=== PATIENT | female | born 1985 | race Two or more races ===

== ENCOUNTER 2023-12-08 14:55 | Emergency (ER) | payer OTHER, SELFPAY ==
--- NOTE | 2023-12-08 | ECG_ITS ---
Test Reason : CHEST PAIN Blood Pressure : / mmHG Vent. Rate : 108 BPM Atrial Rate : 108 BPM P-R Int : 180 ms QRS Dur : 118 ms QT Int : 352 ms P-R-T Axes : 055 026 015 degrees QTc Int : 471 ms Sinus tachycardia Non-specific intra-ventricular conduction delay Borderline ECG No previous ECGs available Referred By: Generic ED Physician Electronically Signed By:SURAJ KAT
--- NOTE | ~2023-12-08 | US_ITS ---
EXAMINATION: US VENOUS ULTRASOUND WITH DOPPLER LOWER EXTREMITY, BILATERAL CLINICAL INFORMATION: Leg pain. . Elevated d-dimer. COMPARISON: None available. TECHNIQUE: Ultrasound of the deep veins is performed from the hip to the calf with compression sonography and color and pulse Doppler assessment. Spectral analysis with color-flow imaging is performed. FINDINGS: RIGHT: There is normal venous compression and respiratory variation and augmented flow. The visualized common femoral vein, superficial femoral vein, profunda femoral vein, popliteal vein, and the trifurcation region shows no evidence of deep venous thrombosis. There is no significant popliteal fossa cyst. Small morphologically normal-appearing lymph nodes in the right inguinal region. LEFT: There is normal venous compression and respiratory variation and augmented flow. The visualized common femoral vein, superficial femoral vein, profunda femoral vein, popliteal vein, and the trifurcation region shows no evidence of deep venous thrombosis. There is no significant popliteal fossa cyst. Small morphologically normal-appearing lymph nodes in the left inguinal region. If the patient's symptoms persist, followup ultrasound in 5 days 7 days might be of value to exclude proximal propagation from a non-visualized calf vein. US/US venous duplex LE BI IMPRESSION: No DVT demonstrated in the bilateral lower extremity.
[2023-12-08 15:21] VITALS: BP 166/108; PULSE 107; RESP 18; TEMP 37.3; O2SAT 99; BMI 43.0
--- NOTE | 2023-12-08 15:23 | ED.GENADULT ---
HPI - General Adult General Chief complaint: Chest Pain Stated complaint: Chest pain, L arm pain, dizziness Time Seen by Provider: 12/08/23 19:38 Source: patient and family Mode of arrival: ambulatory Limitations: no limitations History of Present Illness ED Provider: DR. Shaffer HPI narrative: 38-year-old female 16 week by date no issue for this patient is a high-risk due to age, contracted hypertension from her last , always has protein in her urine., presented today for evaluation of left-sided body ache and shortness of breath started since this morning, patient also had tightness on the left side of the chest with exertional shortness of breath, patient feels generalized body ache more pronounced on the left side than the right side. No vaginal bleed or discharge. Related Data Allergies Allergy/AdvReac Type Severity Reaction Status Date / Time acetaminophen [From Percocet] Allergy Itching Verified 12/08/23 22:38 oxycodone [From Percocet] Allergy Itching Verified 12/08/23 15:27 Review of Systems Review of Systems: All other systems are reviewed and are negative Constitutional: Reports as per HPI and Reports no additional constitutional complaints Eyes: Reports as per HPI and Reports no additional eye complaints Reports system reviewed and no additional complaints, except as documented Cardiovascular: Reports as per HPI and Reports no additional cardiovascular complaints Respiratory: Reports as per HPI and Reports no additional respiratory complaints Gastrointestinal: Reports as per HPI and Reports no additional gastrointestinal complaints Genitourinary: Reports no additional female genitourinary complaints Musculoskeletal: Reports no additional musculoskeletal complaints Skin/Breast: Reports system reviewed and no additional complaints, except as docu Psychiatric: Reports no additional psychiatric complaints Endocrine: Reports no additional endocrine complaints Hematologic/Lymphatic: Reports no additional hematologic/lymphatic complaints Allergic/Immunologic: Reports no additional allergic/immunologic complaints Reports system reviewed and no additional complaints, except as documented and Reports Abnormal speech present [facility] Social History Social History Smoked in Last 30 Days: No Use of substances other than those prescribed or required for medical reasons: No Advance Directives: No Advance Directives Information Provided: No Do you have a plan to hurt others: No Plan Patient : Yes Physical Exam ED Vital Signs: Vital Signs - 24 hr 12/08/23 15:21 12/08/23 19:37 12/08/23 22:15 Temperature 99.1 F 99 F 99.9 F Pulse Rate 107 H 99 105 H Respiratory Rate 18 21 H 20 Blood Pressure 166/108 H 161/100 H 163/94 H Pulse Oximetry 99 98 98 Oxygen Delivery Method Room Air Room Air Room Air BMI result Body Mass Index 43.0 Vital signs have been reviewed and appear to be correct. Blood pressure elevated. Heart rate normal. Respiratory rate normal. Temperature normal. Oxygen saturation normal. Appearance: Alert. Oriented X3. No acute distress. Head: Normal external exam. Normocephalic. Atraumatic. No Gonzalez signs noted. No raccoon eyes noted Eyes: PERRLA. EOMI. Conjunctiva and sclera normal. Eyelids normal. ENT: TM's Normal. Pharynx normal. Uvula midline. Moist mucous membranes. No trismus noted. No drooling noted. No muffled voice noted. Neck: Normal inspection. Neck supple. FROM. No adenopathy. Thyroid Normal. No meningeal signs. No neck mass noted. CVS: Normal heart rate and rhythm. Heart sound normal. No murmurs noted. Pulses normal throughout. Respiratory: No respiratory distress. Painless inspiration. Breath sounds normal. No wheezes/rales/rhonchi noted. Chest nontender. No accessory muscle usage noted or decreased air movement noted. Abdomen: Soft and nontender. Bowel sounds normal in all 4 quadrants. No distention noted. No organomegaly noted. No visible injury noted. Back: No CVA tenderness. Full range of motion noted. Skin: Skin warm and dry. Normal skin color. Normal skin turgor. No rashes/lesions/lacerations noted. Extremities: No lower extremity edema. Extremities exhibit normal range of motion. Extremities nontender. Neuro: Oriented X 3. Cranial nerve exam: II-XII are grossly intact No motor deficit. No sensory deficit. Reflexes normal. NIH Stroke Scale Time: 19:52 Level of Consciousness: Alert Level of Consciousness Questions: Answers both questions correctly Level of Consciousness Commands: Performs both tasks correctly Best Gaze: Normal Visual: No visual loss Facial Palsy: Normal Motor Arm (Right): No drift Motor Arm (Left): No drift Motor Leg (Right): No drift Motor Leg (Left): No drift Limb Ataxia: Absent Sensory: Normal Best Language: No aphasia Dysarthia: Normal Extinction and Inattention: No abnormality Score: 0 Course Course Course Narrative: This is an RME done by [facility] Sim: Additional HPI, ROS, PE not included below will be deferred to primary provider. 38 yo female with pmh asthma presents with chest pain and pressure since this morning. Also reports shortness or breath while climbing stairs and left arm numbness and tingling. Appearance: Alert.? Oriented X3.? No acute cardiopulmonary distress distress.? Head: Normocephalic, atraumatic, no step-offs or deformities Neck: Normal inspection.? Neck supple.? CVS: Pulses normal.? Respiratory: No respiratory distress.? Abdomen: Soft and nontender.? Skin: ? Normal skin color. Extremities: 5/5 strength to bilateral upper and lower extremities Back: No midline tenderness, no C-spine tenderness, full range of motion, No CVA tenderness bilaterally Neuro: Oriented X 3.? No motor deficit.? No sensory deficit. Reevaluation(s) Reevaluation #1: Patient is positive for COVID-19 infection, blood pressure is 163/94, no lower extremity swelling, no blurry vision, no headache, normal LFTs, no abdominal pain. Patient at 16 week gestational making preeclampsia is not likely. No lower extremity swelling or tenderness, slightly elevated D-dimer likely secondary to patient has a negative ultrasound for DVT. FHR 174 bpm. Patient is known to have protein in the urine, unable to give urine for testing today. Has an appointment with OBGYN early next week. Time: 22:46 Medications Administered Discontinued Medications Generic Name Dose Route Start Last Admin Trade Name Zandra PRN Reason Stop Dose Admin Acetaminophen 650 mg 12/08/23 22:21 12/08/23 22:31 Acetaminophen 325 Mg Tablet PO 12/08/23 22:22 650 mg ONCE ONE Administration Medical Decision Making Differential Diagnosis Differential Diagnoses: The differential diagnosis associated with the presentation includes (Hypertension, preeclampsia, viral infection, DVT, complicated .) Admission/Observation Consideration of admission/observation: Escalation of care including admission/observation considered Lab Data [facility] Lab Attestation statement: I reviewed the patient's lab results. 12/08/23 15:46 12/08/23 15:46 Labs: Lab Results 12/08/23 12/08/23 12/08/23 Range/Units 15:46 19:26 20:01 WBC 9.0 (4.8-10.8) X10*3/uL RBC 4.57 (4.20-5.50) X10*6/uL Hgb 12.2 (12.0-16.0) g/dl Hct 35.2 L (37.0-47.0) % MCV 77.0 L (80.0-98.0) fL MCH 26.7 L (27.0-33.0) pg MCHC 34.7 (31.0-35.0) g/dl RDW 14.9 (11.0-16.0) % Plt Count 238 (160-400) X10*3/uL MPV 8.2 L (9.4-12.3) fL Immature Gran % (Auto) 0.6 H (0.0-0.4) % Neut % (Auto) 87.4 H (45-73) % Lymph % (Auto) 7.2 L (20-40) % Lake % (Auto) 3.5 (2-11) % Eos % (Auto) 1.1 (0-4) % Baso % (Auto) 0.2 (0-2) % Lymph # (Auto) 0.7 L (1.2-4.9) X10*3/uL Lake # (Auto) 0.3 (0.1-1.2) X10*3/uL Eos # (Auto) 0.1 (0.0-0.4) X10*3/uL Baso # (Auto) 0.0 (0.0-0.2) X10*3/uL Abs Immat Gran (auto) 0.05 H (0.00-0.03) X10*3/uL Absolute Neuts (auto) 7.9 (2.0-8.3) x10*3/uL Absolute Nucleated RBC 0.000 (0.0-0.012) X10*3/uL Nucleated RBC % (auto) 0.0 (0.0-0.2) /100WBC PT 11.8 (11.1-13.3) SEC INR 1.0 (0.9-1.1) D-Dimer High Sensitivty 383 NG/ML Sodium 137 (135-145) mmol/L Potassium 3.5 (3.3-5.1) mmol/L Chloride 106 (96-108) mmol/L Carbon Dioxide 24 (22-29) mmol/L Anion Gap 11 L (12-20) BUN 7 L (9-16) mg/dL Creatinine 0.59 (0.5-1.4) mg/dL Estim Creat Clear Calc 168.7 Estimated GFR > 60 Random Glucose 108 (60-115) mg/dL Calcium 9.1 (8.4-10.2) mg/dL Magnesium 1.6 (1.6-2.6) mg/dL Total Bilirubin 0.3 (0.0-1.0) mg/dL AST 13 (5-31) U/L ALT 11 (0-31) U/L Alkaline Phosphatase 61 (39-117) U/L Troponin I High Sens 12.4 11.8 (<3.5-17.0) ng/L B-Natriuretic Peptide < 10 (<100) pg/mL Total Protein 7.5 (6.5-8.0) g/dL Albumin 3.6 (3.5-5.0) g/dL Beta HCG, Quant 64038 mIU/mL Influenza Type A (PCR) NEGATIVE (Negative) Influenza Type B (PCR) NEGATIVE (Negative) RSV RNA Qual (PCR) NEGATIVE (Negative) SARS-CoV-2 RNA (RT-PCR) POSITIVE A (Negative) Independent Interpretation I performed an independent interpretation of an: Ultrasound (Bilateral lower extremities venous ultrasound:No DVT demonstrated in the bilateral lower extremity.) Radiology Impression Discussion of test interpretation with radiology: I have reviewed the radiologist's reading. Discharge Plan Discharge Clinical Impression: COVID-19 virus infection Patient Disposition: Home, Self-Care Instructions: COVID-19 (Coronavirus Disease 2019) (ED) Additional Instructions: Follow-up with your OBGYN as scheduled in 2 days. Stand Alone Forms: Work/School Release Print Language: Kosovan
[2023-12-08 15:50] LABS: MANUAL DIFF FLAG NO
[2023-12-08 15:52] LABS: Basophils Percent Auto 0.2 % (0-2); Eosinophils Absolute Auto 0.1 X10*3/uL (0.0-0.4); Eosinophils Percent Auto 1.1 % (0-4); Hematocrit 35.2 % (37.0-47.0); Hemoglobin 12.2 g/dl (12.0-16.0); Imm Gran Abs Auto 0.05 X10*3/uL (0.00-0.03); Imm Gran Pct Auto 0.6 % (0.0-0.4); Lymphocytes Absolute Auto 0.7 X10*3/uL (1.2-4.9); Lymphocytes Percent Auto 7.2 % (20-40); Mean Corpuscular HGB Conc 34.7 g/dl (31.0-35.0); Mean Corpuscular Hemoglobin 26.7 pg (27.0-33.0); Mean Platelet Volume 8.2 fL (9.4-12.3); Monocytes Absolute Auto 0.3 X10*3/uL (0.1-1.2); Monocytes Percent Auto 3.5 % (2-11); Neutrophils Absolute Auto 7.9 x10*3/uL (2.0-8.3); Neutrophils Percent Auto 87.4 % (45-73); Platelet Count 238 X10*3/uL (160-400); Red Blood Count 4.57 X10*6/uL (4.20-5.50); Red Cell Distribution Width 14.9 % (11.0-16.0)
[2023-12-08 16:06] LABS: Prothrombin Time 11.8 SEC (11.1-13.3)
[2023-12-08 16:08] LABS: Alanine Aminotransferase 11 U/L (0-31); Albumin Level 3.6 g/dL (3.5-5.0); Alkaline Phosphatase 61 U/L (39-117); Anion Gap 11 (12-20); Aspartate Amino Transferase 13 U/L (5-31); Bilirubin Total 0.3 mg/dL (0.0-1.0); Blood Urea Nitrogen 7 mg/dL (9-16); Calcium 9.1 mg/dL (8.4-10.2); Carbon Dioxide 24 mmol/L (22-29); Chloride 106 mmol/L (96-108); Creatinine Clr Calc Pharmacy 168.7; Estimated Glomerular Filt Rate > 60; Glucose Random 108 mg/dL (60-115); Magnesium 1.6 mg/dL (1.6-2.6); Potassium 3.5 mmol/L (3.3-5.1); Sodium 137 mmol/L (135-145); Total Protein 7.5 g/dL (6.5-8.0)
[2023-12-08 16:16] LABS: B Type Natriuretic Peptide < 10 pg/mL (<100)
[2023-12-08 17:02] LABS: Troponin-I High Sensitivity 12.4 ng/L (<3.5-17.0)
[2023-12-08 19:37] VITALS: BP 161/100; PULSE 99; RESP 21; TEMP 37.2; O2SAT 98
--- NOTE | 2023-12-08 19:53 | PC.NURSE ---
pt from home, a&ox4, respirations even and unlabored. pt reports being 16 weeks , has been 7 times, all babies without complications. pt reports waking up today with left sided chest pain, left arm tingling, and shortness of breath. at this time pt denies chest pain but reports it comes and goes intermittent. pt reports pain with left leg movement. heart tones obtained- 168-174bpm. pt normal sinus on tele 99-100bpm. at bedside.
[2023-12-08 20:02] LABS: Troponin-I High Sensitivity 11.8 ng/L (<3.5-17.0)
[2023-12-08 20:06] LABS: D Dimer High Sensitivity 383 NG/ML
[2023-12-08 20:50] LABS: Influenza A PCR NEGATIVE (Negative); Influenza B PCR NEGATIVE (Negative); Resp Syncy Virus RNA Qual PCR NEGATIVE (Negative); SARS COV2 PCR INHOUSE POSITIVE (Negative)
[2023-12-08 22:15] VITALS: BP 163/94; PULSE 105; RESP 20; TEMP 37.7; O2SAT 98
[2023-12-08] MEDS: Acetaminophen 325 MG TABLET 650 MG PO (22:31)
--- NOTE | 2023-12-08 22:36 | PC.NURSE ---
pt requesting tylenol for left leg pain, pt reports she is not allergic to tylenol. aware.
[2023-12-08 23:11] VITALS: BP 163/94; PULSE 105; RESP 20; TEMP 37.7; O2SAT 98
== END 2023-12-08 23:12 | disposition home or self-care (01) ==
PROVIDERS: Physician Assistant; Emergency Provider Emergency Medicine
DX: O98.512 Other viral diseases complicating pregnancy, second trimester (principal); O09.892 Supervision of other high risk pregnancies, second trimester; R03.0 Elevated blood-pressure reading, without diagnosis of hypertension; O09.522 Supervision of elderly multigravida, second trimester; U07.1 COVID-19; O26.892 Other specified pregnancy related conditions, second trimester; R06.02 Shortness of breath; R07.9 Chest pain, unspecified; M79.605 Pain in left leg; M79.604 Pain in right leg; R20.2 Paresthesia of skin; O99.512 Diseases of the respiratory system complicating pregnancy, second trimester; J45.909 Unspecified asthma, uncomplicated; Z3A.16 16 weeks gestation of pregnancy
CPT/HCPCS: 0241U; 36415; 80053; 83735; 83880; 84484; 84702; 85025; 85379; 85610; 93005; 93970; 99284; 99285

== ENCOUNTER → 2023-12-08 15:30 | Outpatient (BNV) | payer OTHER, SELFPAY | PROVIDERS: Emergency Provider Emergency Medicine; Visit Provider Internal Medicine | DX: R07.9 Chest pain, unspecified (principal) | CPT/HCPCS: 93010 ==